=== PATIENT | male | born 2005 | race African-American/Black ===

== ENCOUNTER 2023-09-30 23:33 | Emergency (ER) | payer SELFPAY ==
--- NOTE | 2023-09-30 23:50 | ER ---
Nurse's Notes [facility] Name: Caesar Arredondo Age: 17 yrs Sex: Male : 2005 Arrival Date: 09/30/2023 Time: 23:33 Bed IW1 Private MD: Diagnosis: Vomiting;Abdominal pain, unspecified Presentation: 09/29 23:46 Chief complaint: Patient states: I just need a work note to return to work. Coronavirus bm8 screen: At this time, the client does not indicate any symptoms associated with coronavirus-19. Ebola Screen: Patient negative for fever greater than or equal to 101.5 degrees Fahrenheit, and additional compatible Ebola Virus Disease symptoms Patient denies exposure to infectious person. Patient denies travel to an Ebola-affected area in the 21 days before illness onset. No symptoms or risks identified at this time. Initial Sepsis Screen: Does the patient meet any 2 criteria? No. Patient's initial sepsis screen is negative. Does the patient have a suspected source of infection? No. Patient's initial sepsis screen is negative. Risk Assessment: Do you want to hurt yourself or someone else? Patient reports no desire to harm self or others. Onset of symptoms is unknown. 23:46 Method Of Arrival: Ambulatory bm8 23:46 Acuity: BENITO 5 bm8 Triage Assessment: 23:47 General: Appears in no apparent distress. comfortable, Behavior is calm, cooperative. bm8 Pain: Denies pain. GI: No deficits noted. No signs and/or symptoms were reported involving the gastrointestinal system. pt stated " I am only here for a work note to return to work. Historical: - Allergies: 23:47 No Known Allergies; bm8 - Home Meds: 23:47 None [Active]; bm8 - PMHx: 23:47 ADD/ADHD; bm8 - PSHx: 23:47 None; bm8 - Immunization history:: Adult Immunizations up to date. - Infectious Disease History:: Denies. - Social history:: Smoking status: Patient reports the use of cigarette tobacco products. - Family history:: not pertinent. - Hospitalizations: : No recent hospitalization is reported. Screenin:48 [facility] ED Fall Risk Assessment (Adult) History of falling in the last 3 months, bm8 including since admission No falls in past 3 months (0 pts) Confusion or Disorientation No (0 pts) Intoxicated or Sedated No (0 pts) Impaired Gait No (0 pts) Mobility Assist Device Used No (0 pt) Altered Elimination No (0 pt) Score/Fall Risk Level 0 - 2 = Low Risk Oriented to surroundings, Maintained a safe environment, Educated pt \\T\\ family on fall prevention, incl call for assistance when getting out of bed. Abuse screen: Denies threats or abuse. Denies injuries from another. Nutritional screening: No deficits noted. Tuberculosis screening: No symptoms or risk factors identified. Assessment: 23:48 Reassessment: see triage note. bm8 23:49 GI: Bowel sounds present X 4 quads. Abd is soft and non tender X 4 quads. bm8 Vital Signs: 23:46 BP 133 / 83; Pulse 74; Resp 17; Temp 98.6; Pulse Ox 99% ; Weight 70.31 kg; Height 5 ft. bm8 6 in. ; Pain 0/10; 23:46 Body Mass Index 25.02 (70.31 kg, 167.64 cm) - Percentile 71.9 % bm8 23:46 Pain Scale: Adult bm8 [place] Coma Score: 23:48 Eye Response: spontaneous(4). Motor Response: obeys commands(6). Verbal Response: bm8 oriented(5). Total: 15. ED Course: 23:39 Patient arrived in ED. ra3 23:40 Tim Aguirre MD is Attending Physician. rn 23:46 Seb Dyer RN is Primary Nurse. bm8 23:47 Triage completed. bm8 23:47 Arm band placed on right wrist. bm8 23:48 Patient has correct armband on for positive identification. Provided Education on: post bm8 er care. 23:48 No provider procedures requiring assistance completed. Patient did not have IV access bm8 during this emergency room visit. Administered Medications: No medications were administered Medication: 23:48 VIS not applicable for this client. bm8 Outcome: 23:48 Discharged to home ambulatory, bm8 23:48 Condition: stable 23:48 Discharge instructions given to patient, Instructed on discharge instructions, follow up and referral plans. Demonstrated understanding of instructions, follow-up care, 23:49 Discharge ordered by . rn 23:50 Patient left the ED. bm8 Signatures: Tim Aguirre MD MD rn Alva, Ruby ra3 Seb Dyer, RN RN bm8
--- NOTE | 2023-09-30 23:50 | EDPHYS ---
Physician Documentation [facility] Name: Caesar Arredondo Age: 17 yrs Sex: Male : 2005 Arrival Date: 09/30/2023 Time: 23:33 Bed IW1 Private MD: ED Physician Tim Aguirre HPI: 09/29 23:47 This 17 yrs old Black Male presents to ER via Ambulatory with complaints of Abdominal rn Pain, Nausea/Vomiting. 23:47 The patient presents to the emergency department with nausea, vomiting. Onset: The rn symptoms/episode began/occurred yesterday. Possible causes: unknown, sick contacts, by co-worker(s). Severity of symptoms: At their worst the symptoms were mild in the emergency department the symptoms have resolved. The patient has not experienced similar symptoms in the past. Patient reports was sick for the last 2 days with vomiting. Feels like picked up a bug from coworkers. Now feels completely back to normal without abdominal pain or vomiting. No diarrhea. No fever. Patient states just needs work note to return to work. Works at [employer] would not allow him to return without note. Historical: - Allergies: 23:47 No Known Allergies; bm8 - Home Meds: 23:47 None [Active]; bm8 - PMHx: 23:47 ADD/ADHD; bm8 - PSHx: 23:47 None; bm8 - Immunization history:: Adult Immunizations up to date. - Infectious Disease History:: Denies. - Social history:: Smoking status: Patient reports the use of cigarette tobacco products. - Family history:: not pertinent. - Hospitalizations: : No recent hospitalization is reported. ROS: 23:47 Constitutional: Negative for fever, chills, and weight loss, Cardiovascular: Negative rn for chest pain, palpitations, and edema, Respiratory: Negative for shortness of breath, cough, wheezing, and pleuritic chest pain, Abdomen/GI: Negative for abdominal pain, nausea, vomiting, diarrhea, and constipation, MS/Extremity: Negative for injury and deformity, Skin: Negative for injury, rash, and discoloration, Neuro: Negative for headache, weakness, numbness, tingling, and seizure, Exam: 23:47 Constitutional: This is a well developed, well nourished patient who is awake, alert, rn and in no acute distress. Patient using his phone entire conversation, does not appear acutely ill. Cardiovascular: Regular rate and rhythm. No pulse deficits. Abdomen/GI: Soft, nontender, nondistended Neuro: Awake and alert, GCS 15 Vital Signs: 23:46 BP 133 / 83; Pulse 74; Resp 17; Temp 98.6; Pulse Ox 99% ; Weight 70.31 kg; Height 5 ft. bm8 6 in. ; Pain 0/10; 23:46 Body Mass Index 25.02 (70.31 kg, 167.64 cm) - Percentile 71.9 % bm8 23:46 Pain Scale: Adult bm8 [place] Coma Score: 23:48 Eye Response: spontaneous(4). Motor Response: obeys commands(6). Verbal Response: bm8 oriented(5). Total: 15. MDM: 23:40 Patient medically screened. rn 23:47 Differential diagnosis: viral gastroenteritis, gastroenteritis. Data reviewed: vital rn signs, nurses notes, and as a result, I will discharge patient. Counseling: I had a detailed discussion with the patient and/or guardian regarding the historical points, exam findings, and any diagnostic results supporting the discharge/admit diagnosis, the need for outpatient follow up, to return to the emergency department if symptoms worsen or persist or if there are any questions or concerns that arise at home. Special discussion: I discussed with the patient/guardian in detail that at this point there is no indication for admission to the hospital. It is understood, however, that if the symptoms persist or worsen the patient needs to return immediately for re-evaluation. ED course: Patient declines any workup, states just needs work note. States completely back to normal without symptoms.. Administered Medications: No medications were administered Disposition Summary: 09/30/23 23:49 Discharge Ordered Notes: Location: Home rn Problem: new rn Symptoms: are resolved rn Condition: Stable rn Diagnosis - Vomiting rn - Abdominal pain, unspecified rn Followup: rn - With: Private Physician - When: As needed - Reason: Recheck today's complaints, Re-evaluation by your physician Discharge Instructions: - Discharge Summary Sheet rv1 Forms: - Medication Reconciliation Form rn - Antibiotic external auditor - Prescription Opioid Use rn - Patient Portal Instructions rn - Leadership Thank You Letter rn - Work release form rv1 Signatures: Tim Aguirre MD MD rn McDonald, Brad, RN RN bm8
[2023-10-01 00:33] VITALS: BP 133/83; TEMP 98.6; O2SAT 99
== END 2023-09-30 23:50 | disposition home or self-care (01) ==
LOC: ER 23:33
DX: Z02.79 Encounter for issue of other medical certificate (principal)
CPT/HCPCS: 99282

== ENCOUNTER 2023-11-18 03:22 | Emergency (ER) | payer OTHER, SELFPAY ==
--- NOTE | 2023-11-18 04:27 | ER ---
Nurse's Notes [facility] Name: Caesar Arredondo Age: 18 yrs Sex: Male : 2005 Arrival Date: 11/18/2023 Time: 03:22 Bed 17 Private MD: Diagnosis: Nausea;Sleep disorder, unspecified Presentation: 11/17 03:52 Chief complaint: Patient states: stomach "ill feel" and woke up gasping for air. vc1 Coronavirus screen: Client denies travel out of the [place] in the last 14 days. At this time, the client does not indicate any symptoms associated with coronavirus-19. Ebola Screen: Patient negative for fever greater than or equal to 101.5 degrees Fahrenheit, and additional compatible Ebola Virus Disease symptoms Patient denies exposure to infectious person. Patient denies travel to an Ebola-affected area in the 21 days before illness onset. No symptoms or risks identified at this time. Initial Sepsis Screen: Does the patient meet any 2 criteria? No. Patient's initial sepsis screen is negative. Does the patient have a suspected source of infection? No. Patient's initial sepsis screen is negative. Risk Assessment: Do you want to hurt yourself or someone else? Patient reports no desire to harm self or others. Onset of symptoms was November 18, 2023. 03:52 Method Of Arrival: Ambulatory vc1 03:52 Acuity: BENITO 4 vc1 Historical: - Allergies: 03:53 No Known Allergies; vc1 - Home Meds: 03:53 None [Active]; vc1 - PMHx: 03:53 ADD/ADHD; vc1 - PSHx: 03:53 None; vc1 - Immunization history:: Client reports receiving the 2nd dose of the Covid vaccine, Flu vaccine is not up to date. - Infectious Disease History:: Denies. - Social history:: Smoking status: Reported history of juuling and/or vaping. Screenin:56 [facility] ED Fall Risk Assessment (Adult) History of falling in the last 3 months, vc1 including since admission No falls in past 3 months (0 pts) Confusion or Disorientation No (0 pts) Intoxicated or Sedated No (0 pts) Impaired Gait No (0 pts) Mobility Assist Device Used No (0 pt) Altered Elimination No (0 pt) Score/Fall Risk Level 0 - 2 = Low Risk Oriented to surroundings, Maintained a safe environment, Educated pt \\T\\ family on fall prevention, incl call for assistance when getting out of bed. Abuse screen: Denies threats or abuse. Nutritional screening: No deficits noted. Tuberculosis screening: No symptoms or risk factors identified. Assessment: 04:15 General: Appears in no apparent distress. comfortable, Behavior is calm, cooperative, jw7 appropriate for age. Pain: Complains of pain in abdomen Pain does not radiate. Pain currently is 2 out of 10 on a pain scale. Quality of pain is described as crampy, Pain began suddenly, Is continuous. Neuro: Level of Consciousness is awake, alert, obeys commands, Oriented to person, place, time, situation, Appropriate for age. Cardiovascular: Heart tones S1 S2 present Capillary refill < 3 seconds Clubbing of nail beds is absent JVD is absent Patient's skin is warm and dry. Respiratory: Airway is patent Trachea midline Respiratory effort is even, unlabored, Respiratory pattern is regular, symmetrical. GI: Abdomen is flat, non-distended, Bowel sounds present X 4 quads. Abd is soft and non tender X 4 quads. : No deficits noted. No signs and/or symptoms were reported regarding the genitourinary system. EENT: No deficits noted. No signs and/or symptoms were reported regarding the EENT system. Derm: Skin is intact, is healthy with good turgor, Skin is dry, Skin is normal, Skin temperature is warm. Musculoskeletal: Circulation, motion, and sensation intact. Range of motion: intact in all extremities. Vital Signs: 03:52 Weight 66.68 kg; Height 5 ft. 6 in. ; Pain 0/10; vc1 03:54 BP 138 / 81; Pulse 77; Resp 14; Temp 97.7; Pulse Ox 98% ; vc1 03:52 Body Mass Index 23.73 (66.68 kg, 167.64 cm) vc1 03:52 Pain Scale: Adult vc1 ED Course: 03:24 Patient arrived in ED. ec2 03:24 Tyson Cordova MD is Attending Physician. ec2 03:53 Triage completed. vc1 03:53 Arm band placed on right wrist. vc1 04:15 Patient has correct armband on for positive identification. Bed in low position. Call jw7 light in reach. Provided Education on: Use of Call Light. 04:26 Joyce Stone, RN is Primary Nurse. jw7 04:28 No provider procedures requiring assistance completed. Patient did not have IV access jw7 during this emergency room visit. Administered Medications: 04:26 CANCELLED (Physician Discretion): ondansetron 4 mg IVP once; over 2 minutes ec2 04:26 CANCELLED (Physician Discretion): ns 0.9% 1000 ml IV at 1 bolus Per protocol; 1000 mL ec2 bolus Medication: 04:28 VIS not applicable for this client. jw7 Outcome: 04:27 Discharge ordered by . ec2 04:35 Discharged to home ambulatory, jw7 04:35 Condition: stable 04:35 Discharge instructions given to patient, Instructed on discharge instructions, follow up and referral plans. Demonstrated understanding of instructions, follow-up care, 04:35 Patient left the ED. jw7 Signatures: Carmen De La Garza RN RN vc1 Joyce Stone, RN RN jw7 Tyson Cordova MD MD ec2
--- NOTE | 2023-11-18 04:27 | EDPHYS ---
Physician Documentation [facility] Name: Caesar Arredondo Age: 18 yrs Sex: Male : 2005 Arrival Date: 11/18/2023 Time: 03:22 Bed 17 Private MD: ED Physician HPI: 11/17 04:27 This 18 yrs old Black Male presents to ER via Ambulatory with complaints of Abdominal ec2 Pain, BREATHING ISSUE WHILE SLEEPING. 04:27 Patient arrives today for evaluation of nausea as well as a breathing issue while ec2 sleeping. Patient reportedly felt nauseous and has since resolved. Also reportedly had a bout where he woke up suddenly gasping for air and was fairly anxious. States that this is the only time this has happened before. Patient reports she is symptom-free at this time and does not want further testing.. Historical: - Allergies: 03:53 No Known Allergies; vc1 - Home Meds: 03:53 None [Active]; vc1 - PMHx: 03:53 ADD/ADHD; vc1 - PSHx: 03:53 None; vc1 - Immunization history:: Client reports receiving the 2nd dose of the Covid vaccine, Flu vaccine is not up to date. - Infectious Disease History:: Denies. - Social history:: Smoking status: Reported history of juuling and/or vaping. ROS: 04:27 Constitutional: as per hpi ec2 Exam: 04:27 Constitutional: GEN: NAD Head: atraumatic Eyes: EOMI Ears: External ears are ec2 normal. CV: regular rate LUNGS: no respiratory distress ABD: non-distended, soft, nontender, no guarding, nonrigid SKIN: no evidence of rashes MSK: no evidence of trauma NEURO: moves all extremities equally Vital Signs: 03:52 Weight 66.68 kg; Height 5 ft. 6 in. ; Pain 0/10; vc1 03:54 BP 138 / 81; Pulse 77; Resp 14; Temp 97.7; Pulse Ox 98% ; vc1 03:52 Body Mass Index 23.73 (66.68 kg, 167.64 cm) vc1 03:52 Pain Scale: Adult vc1 MDM: 04:06 Patient medically screened. ec2 04:27 Data reviewed: vital signs. ED course: Patient arrives today for evaluation of ec2 breathing issue while sleeping as well as abdominal discomfort that is since resolved. Examination remarkable for hemodynamically stable individuals otherwise in no acute distress with a reassuring examination. I discussed obtaining lab work with the patient however the patient declines that he did not want additional lab test and felt back to baseline and wanted to be discharged home. I will discharge him and instruct him to return to the ED if symptoms return.. Administered Medications: 04:26 CANCELLED (Physician Discretion): ondansetron 4 mg IVP once; over 2 minutes ec2 04:26 CANCELLED (Physician Discretion): ns 0.9% 1000 ml IV at 1 bolus Per protocol; 1000 mL ec2 bolus Disposition Summary: 11/18/23 04:27 Discharge Ordered Notes: Location: Home ec2 Condition: Stable ec2 Diagnosis - Nausea ec2 - Sleep disorder, unspecified ec2 Followup: ec2 - With: Private Physician - When: - Reason: Re-evaluation by your physician Discharge Instructions: - Discharge Summary Sheet ec2 Forms: - Work release form ec2 - Medication Reconciliation Form ec2 - Antibiotic Education ec2 - Prescription Opioid Use ec2 - Patient Portal Instructions ec2 - Leadership Thank You Letter ec2 Signatures: Dispatcher [employer] EDMS Carmen De La Garza RN RN vc1 Tyson Cordova MD MD ec2 Corrections: (The following items were deleted from the chart) 04:26 04:06 Ondansetron IVP 4 mg IVP once; over 2 minutes ordered. ec2 ec2 04:26 04:06 NS 0.9% IV 1000 ml IV at 1 bolus Per protocol; 1000 mL bolus ordered. ec2 ec2 04:26 04:06 IV Saline Lock ordered. ec2 ec2
[2023-11-18 05:30] VITALS: BP 138/81; TEMP 97.7; O2SAT 98
== END 2023-11-18 04:35 | disposition home or self-care (01) ==
LOC: ER 03:22
DX: R11.0 Nausea (principal); G47.9 Sleep disorder, unspecified
CPT/HCPCS: 99282

== ENCOUNTER 2023-12-31 02:52 | Emergency (ER) | payer OTHER, SELFPAY ==
--- NOTE | 2023-12-31 04:35 | ER ---
Nurse's Notes [facility] Name: Caesar Arredondo Age: 18 yrs Sex: Male : 2005 Arrival Date: 12/31/2023 Time: 02:52 Bed 7 Private MD: Diagnosis: Abdominal pain, unspecified Presentation: 12/30 03:10 Chief complaint: Patient states: Left side/rib pain that is intermittent and comes on jw7 sharp and slowly goes away. Has been going on for over a year and happens roughly 3 times per day. 03:10 Coronavirus screen: At this time, the client does not indicate any symptoms associated jw7 with coronavirus-19. Ebola Screen: No symptoms or risks identified at this time. Initial Sepsis Screen: Does the patient meet any 2 criteria? No. Patient's initial sepsis screen is negative. Does the patient have a suspected source of infection? No. Patient's initial sepsis screen is negative. Risk Assessment: Do you want to hurt yourself or someone else? Patient reports no desire to harm self or others. Onset of symptoms was 2022. 03:10 Method Of Arrival: Ambulatory jw7 03:10 Acuity: BENITO 4 jw7 Triage Assessment: 03:10 General: Appears in no apparent distress. comfortable, Behavior is calm, cooperative, jw7 appropriate for age. Pain: Denies pain. EENT: No deficits noted. No signs and/or symptoms were reported regarding the EENT system. Neuro: Level of Consciousness is awake, alert, obeys commands, Oriented to person, place, time, situation, Appropriate for age. Cardiovascular: Heart tones S1 S2 present Capillary refill < 3 seconds Clubbing of nail beds is absent JVD is absent Patient's skin is warm and dry. Respiratory: Airway is patent Trachea midline Respiratory effort is even, unlabored, Respiratory pattern is regular, symmetrical, Breath sounds are clear bilaterally. GI: Abdomen is flat, non-distended, Bowel sounds present X 4 quads. Abd is soft and non tender X 4 quads. : No deficits noted. No signs and/or symptoms were reported regarding the genitourinary system. Derm: Skin is intact, is healthy with good turgor, Skin is dry, Skin is normal, Skin temperature is warm. Musculoskeletal: Circulation, motion, and sensation intact. Range of motion: intact in all extremities. Historical: - Allergies: 03:10 No Known Allergies; jw7 - Home Meds: 03:10 None [Active]; jw7 - PMHx: 03:10 ADD/ADHD; jw7 - PSHx: 03:10 None; jw7 - Immunization history:: Adult Immunizations up to date. - Infectious Disease History:: Denies. - Social history:: Smoking status: Reported history of juuling and/or vaping. Patient uses alcohol, but reports only rare drinking. Patient/guardian denies using street drugs, IV drugs. - Family history:: not pertinent. Screenin:10 [facility] ED Fall Risk Assessment (Adult) History of falling in the last 3 months, jw7 including since admission No falls in past 3 months (0 pts) Confusion or Disorientation No (0 pts) Intoxicated or Sedated No (0 pts) Impaired Gait No (0 pts) Mobility Assist Device Used No (0 pt) Altered Elimination No (0 pt) Score/Fall Risk Level 0 - 2 = Low Risk Oriented to surroundings, Maintained a safe environment, Educated pt \\T\\ family on fall prevention, incl call for assistance when getting out of bed. Abuse screen: Denies threats or abuse. Denies injuries from another. Nutritional screening: No deficits noted. Tuberculosis screening: No symptoms or risk factors identified. Assessment: 03:10 General: see triage assessment. jw7 03:30 General: Provider requested to wait on labs . jw7 04:20 General: Pt refused IV and lab work, stated "I'll come back later if I need to" . jw7 04:33 Reassessment: Patient appears in no apparent distress at this time. No changes from jw7 previously documented assessment. Patient and/or family updated on plan of care and expected duration. Pain level reassessed. Patient is alert, oriented x 3, equal unlabored respirations, skin warm/dry/pink. Patient denies pain at this time. Vital Signs: 03:10 BP 131 / 79 LA Sitting (auto/reg); Pulse 78 MON; Resp 16 S; Temp 98.6(O); Pulse Ox 96% oh1 on R/A; Weight 65.77 kg (M); Height 5 ft. 6 in. (R); Pain 0/10; 04:00 BP 121 / 88; Pulse 75; Resp 16 S; Pulse Ox 100% on R/A; jw7 03:10 Body Mass Index 23.40 (65.77 kg, 167.64 cm) oh1 03:10 Pain Scale: Adult oh1 ED Course: 03:01 Patient arrived in ED. gm2 03:10 Arm band placed on. jw7 03:10 Patient has correct armband on for positive identification. Bed in low position. Call jw7 light in reach. Provided Education on: use of call light. 03:13 Phil Osman MD is Attending Physician. sp4 03:28 Triage completed. jw7 04:35 Avila Guzman MD is Referral Physician. sp4 04:46 No provider procedures requiring assistance completed. Patient did not have IV access jw7 during this emergency room visit. Administered Medications: No medications were administered Medication: 04:46 VIS not applicable for this client. jw7 Outcome: 04:35 Discharge ordered by . sp4 04:46 Discharged to home ambulatory, jw7 04:46 Condition: stable 04:46 Discharge instructions given to patient, Instructed on discharge instructions, follow up and referral plans. Demonstrated understanding of instructions, follow-up care, 04:47 Patient left the ED. jw7 Signatures: Joyce Stone RN RN jw7 Phil Osman MD MD sp4 April Quinones gm2 Terri Herr oh1
--- NOTE | 2023-12-31 04:36 | EDPHYS ---
Physician Documentation [facility] Name: Caesar Arredondo Age: 18 yrs Sex: Male : 2005 Arrival Date: 12/31/2023 Time: 02:52 Bed 7 Private MD: ED Physician Phil Osman HPI: 12/30 03:47 This 18 yrs old Black Male presents to ER via Ambulatory with complaints of Abdominal sp4 Pain. 04:37 Presents with left upper quadrant abdominal pain on and off for 1 year.. sp4 Historical: - Allergies: 03:10 No Known Allergies; jw7 - Home Meds: 03:10 None [Active]; jw7 - PMHx: 03:10 ADD/ADHD; jw7 - PSHx: 03:10 None; jw7 - Immunization history:: Adult Immunizations up to date. - Infectious Disease History:: Denies. - Social history:: Smoking status: Reported history of juuling and/or vaping. Patient uses alcohol, but reports only rare drinking. Patient/guardian denies using street drugs, IV drugs. - Family history:: not pertinent. ROS: 04:37 Constitutional: Negative for fever, chills, and weight loss, left upper quadrant sp4 abdominal pain 04:37 All other systems are negative, Exam: 04:37 Constitutional: This is a well developed, well nourished patient who is awake, alert, sp4 and in no acute distress. Head/Face: Normocephalic, atraumatic. Eyes: Pupils equal round and reactive to light, extra-ocular motions intact. Lids and lashes normal. Conjunctiva and sclera are not injected. Cornea within normal limits. Periorbital areas with no swelling, redness, or edema. ENT: Nares patent. No nasal discharge, no septal abnormalities noted. Tympanic membranes are normal and external auditory canals are clear. Oropharynx with no redness, swelling, or masses, exudates, or evidence of obstruction, uvula midline. Mucous membranes moist. Neck: Trachea midline, no thyromegaly or masses palpated, and no cervical lymphadenopathy. Supple, full range of motion without nuchal rigidity, or vertebral point tenderness. Chest/axilla: Normal chest wall appearance and motion. Nontender with no deformity. No lesions are appreciated. Cardiovascular: Regular rate and rhythm with a normal S1 and S2. No gallops, murmurs, or rubs. Normal PMI, no JVD. No pulse deficits. Respiratory: Lungs have equal breath sounds bilaterally, clear to auscultation and percussion. No rales, rhonchi or wheezes noted. No increased work of breathing, no retractions or nasal flaring. Abdomen/GI: Soft, with normal bowel sounds. No distension or tympany. No guarding or rebound. No evidence of tenderness throughout. Back: No spinal tenderness. No costovertebral tenderness. Skin: Warm, dry with normal turgor. Normal color with no rashes, no lesions, and no evidence of cellulitis. MS/ Extremity: Pulses equal, no cyanosis. Neurovascular intact. Full, normal range of motion. Neuro: Awake and alert, GCS 15, oriented to person, place, time, and situation. Cranial nerves II-XII grossly intact. Motor strength 5/5 in all extremities. Sensory grossly intact. Psych: Awake, alert, with orientation to person, place and time. Behavior, mood, and affect are within normal limits Vital Signs: 03:10 BP 131 / 79 LA Sitting (auto/reg); Pulse 78 MON; Resp 16 S; Temp 98.6(O); Pulse Ox 96% oh1 on R/A; Weight 65.77 kg (M); Height 5 ft. 6 in. (R); Pain 0/10; 04:00 BP 121 / 88; Pulse 75; Resp 16 S; Pulse Ox 100% on R/A; jw7 03:10 Body Mass Index 23.40 (65.77 kg, 167.64 cm) oh1 03:10 Pain Scale: Adult oh1 MDM: 03:45 Patient medically screened. sp4 04:37 Differential diagnosis: bowel obstruction, Cholelithiasis, diverticulitis, Hepatitis. sp4 Data reviewed: vital signs, nurses notes, old medical records. ED course: At this time declined labs and a CAT scan, states he will come back when he is more time.. Able for discharge with informed discharge. Administered Medications: No medications were administered Disposition Summary: 12/31/23 04:35 Discharge Ordered Notes: Location: Home sp4 Problem: new sp4 Symptoms: have improved sp4 Condition: Stable sp4 Diagnosis - Abdominal pain, unspecified sp4 Followup: sp4 - With: Megan, Avila, MD - When: 7 - 10 days - Reason: Recheck today's complaints Discharge Instructions: - Discharge Summary Sheet sp4 - Abdominal Pain, Adult sp4 Forms: - Work release form sp4 - Patient Portal Instructions sp4 Signatures: Dispatcher [employer] Joyce Cruz RN RN jw7 Phil Osman MD MD sp4 Corrections: (The following items were deleted from the chart) 03:46 03:46 Urinalysis W/Microscopic+U.LAB.BRZ ordered. EDMS EDMS 03:46 03:46 C-REACTIVE PROTEIN+C.LAB.BRZ ordered. EDMS EDMS 04:46 03:14 IV Saline Lock ordered. sp4 jw7 04:47 03:14 Labs collected and sent ordered. sp4 jw7
[2023-12-31 08:24] VITALS: TEMP 98.6
[2023-12-31 08:25] VITALS: BP 121/88; O2SAT 100
== END 2023-12-31 04:47 | disposition home or self-care (01) ==
LOC: ER 02:52
DX: R10.12 Left upper quadrant pain (principal)
CPT/HCPCS: 99282

== ENCOUNTER 2023-12-31 23:55 | Emergency (ER) | payer SELFPAY ==
--- NOTE | 2024-01-01 12:37 | RAD REPORT ---
EXAM DESCRIPTION: CT Abdomen and Pelvis With Intravenous Contrast CLINICAL HISTORY: ABD PAIN. TECHNIQUE: Axial computed tomography images of the abdomen and pelvis with intravenous contrast. S agittal and coronal reformatted images were created and reviewed. This CT exam was performed using one or more of the following dose reduction techniques: automated exposure control, adjustment of t he mA and/or kV according to patient size, and/or use of iterative reconstruction technique. COMPARISON: No relevant prior studies available. FINDINGS: Lung bases: Unremarkable. No mass. No consolidation. ABDOMEN: Liver: Unremarkable. No mass. Gallbladder and bile ducts: Unremarkable. No calcified stones. No ductal dilation. Pancreas: Unremarkable. No mass. No ductal dilation. Spleen: Unremarkable. No splenomegaly. Adrenals: Unremarkable. No mass. Kidneys and ureters: Unremarkable. No solid mass. No hydronephrosis. Stomach and bowel: Moderate stool in the proximal to mid large bowel. No obstruction. No appreciabl e mucosal thickening. PELVIS: Appendix: Normal caliber appendix. No findings to suggest acute appendicitis. Bladder: Unremarkable. No mass. Reproductive: Unremarkable as visualized. ABDOMEN and PELVIS: Intraperitoneal space: Unremarkable. No free air. No significant fluid collection. Bones/joints: No acute fracture. No dislocation. Soft tissues: Unremarkable. Vasculature: Unremarkable. No abdominal aortic aneurysm. Lymph nodes: Unremarkable. No enlarged lymph nodes. IMPRESSION: 1. No acute inflammatory process identified within the abdomen and pelvis. 2. Other findings as above. Electronically signed by: Saeid Ruiz MD 01/01/2024 02:36 AM CDT Due to temporary technical issues with the PACS/Fluency reporting system, reports are being signed by the in house radiologists without review as a courtesy to insure prompt reporting. The interpreting radiologist is fully responsible for the content of the report.
--- NOTE | 2024-01-01 17:00 | ER ---
Nurse's Notes [facility] Name: Caesar Arredondo Age: 18 yrs Sex: Male : 2005 Arrival Date: 12/31/2023 Time: 23:55 Bed 10 Private MD: Diagnosis: Abdominal pain, unspecified Presentation: 12/31 00:07 Chief complaint: Patient states: WAS SEEN IN THE ER YESTERDAY FOR LEFT SIDED PAIN. jj7 STATES HE WAS SUPPOSE TO GET A CT BUT LEFT BECAUSE HE DIDN'T HAVE TIME. NOW HERE TO GET A CT. CURRENTLY NOT HAVING ANY PAIN. Coronavirus screen: At this time, the client does not indicate any symptoms associated with coronavirus-19. Ebola Screen: No symptoms or risks identified at this time. Initial Sepsis Screen: Does the patient meet any 2 criteria? No. Patient's initial sepsis screen is negative. Does the patient have a suspected source of infection? No. Patient's initial sepsis screen is negative. Risk Assessment: Do you want to hurt yourself or someone else? Patient reports no desire to harm self or others. 00:07 Method Of Arrival: Ambulatory [facility] 00:07 Acuity: BENITO 5 jj7 00:07 Onset of symptoms was December 31, 2023. j7 Triage Assessment: 00:12 General: Appears in no apparent distress. comfortable, Behavior is calm, cooperative, jj7 appropriate for age. Pain: Denies pain. Historical: - Allergies: 00:12 No Known Allergies; jj7 - PMHx: 00:12 ADD/ADHD; jj7 - PSHx: 00:12 None; jj7 - Immunization history:: Adult Immunizations up to date. - Infectious Disease History:: Denies. - Social history:: Smoking status: Reported history of juuling and/or vaping. Patient/guardian denies using alcohol, street drugs. - Family history:: not pertinent. Screenin:13 [facility] ED Fall Risk Assessment (Adult) History of falling in the last 3 months, jj7 including since admission No falls in past 3 months (0 pts) Confusion or Disorientation No (0 pts) Intoxicated or Sedated No (0 pts) Impaired Gait No (0 pts) Mobility Assist Device Used No (0 pt) Altered Elimination No (0 pt) Score/Fall Risk Level 0 - 2 = Low Risk Oriented to surroundings, Maintained a safe environment, Educated pt \T\ family on fall prevention, incl call for assistance when getting out of bed, Assessed \T\ reinforced patient's understanding of fall precautions. Abuse screen: Denies threats or abuse. Nutritional screening: No deficits noted. Tuberculosis screening: No symptoms or risk factors identified. Assessment: 00:13 Reassessment: SEE TRIAGE ASSESMENT. jj7 Vital Signs: 00:07 BP 134 / 82; Pulse 72; Resp 19; Temp 98.7; Pulse Ox 99% ; Weight 65.77 kg; Height 5 ft. jj7 6 in. ; Pain 0/10; 01:00 BP 127 / 75; Pulse 69; Resp 17; Pulse Ox 98% ; jj7 02:00 BP 129 / 81; Pulse 76; Resp 17; Pulse Ox 98% ; jj7 02:55 BP 124 / 76; Pulse 75; Resp 17; Temp 98.3; Pulse Ox 97% ; Pain 0/10; jj7 00:07 Body Mass Index 23.40 (65.77 kg, 167.64 cm) jj7 00:07 Pain Scale: Adult jj7 02:55 Pain Scale: Adult jj7 ED Course: 12/30 23:56 Patient arrived in ED. jj6 23:56 Agusto Lopez MD is Attending Physician. rt 08 00:12 Triage completed. jj7 00:12 Arm band placed on right wrist. jj7 00:13 Patient has correct armband on for positive identification. jj7 00:14 Provided Education on: use of call ibarra. jj7 00:50 Inserted saline lock: 22 gauge in right antecubital area, using aseptic technique. ty Flushed with 10 mL NS. 02:57 No provider procedures requiring assistance completed. IV discontinued, intact, jj7 bleeding controlled, No redness/swelling at site. Pressure dressing applied. 08:51 CT Abd/Pelvis - IV Contrast Only In Process Unspecified. EDMS Administered Medications: No medications were administered Medication: 00:13 VIS not applicable for this client. jj7 Outcome: 02:42 Discharge ordered by . rt 02:57 Discharged to home ambulatory, jj7 02:57 Condition: good 02:57 Discharge instructions given to patient, Instructed on discharge instructions, Demonstrated understanding of instructions, 03:03 Patient left the ED. jj7 Signatures: Dispatcher [employer] EDGissell Benitez jj6 Shruthi Hicks RN RN jj7 Agusto Lopez MD MD rt Jose Vazquez
--- NOTE | 2024-01-01 17:01 | EDPHYS ---
Physician Documentation [facility] Name: Caesar Arredondo Age: 18 yrs Sex: Male : 2005 Arrival Date: 12/31/2023 Time: 23:55 Bed 10 Private MD: ED Physician Agusto Lopez HPI: 12/31 00:29 This 18 yrs old Black Male presents to ER via Ambulatory with complaints of LEFT SIDE rt PAIN. 00:29 Patient presents to the ED with a left upper quadrant pain that has been intermittent rt for quite some time. Patient was seen in the ED last night, CT scan was ordered but he left because he did not have time to wait. Is back for CT scan. Denies any pain currently. Symptoms are mild severity, no other aggravating or elevating factors.. Historical: - Allergies: 00:12 No Known Allergies; jj7 - PMHx: 00:12 ADD/ADHD; jj7 - PSHx: 00:12 None; jj7 - Immunization history:: Adult Immunizations up to date. - Infectious Disease History:: Denies. - Social history:: Smoking status: Reported history of juuling and/or vaping. Patient/guardian denies using alcohol, street drugs. - Family history:: not pertinent. ROS: 00:29 Constitutional: Negative for fever, chills, and weight loss, Cardiovascular: Negative rt for chest pain, palpitations, and edema, Respiratory: Negative for shortness of breath, cough, wheezing, and pleuritic chest pain, MS/Extremity: Negative for injury and deformity, Skin: Negative for injury, rash, and discoloration, Neuro: Negative for headache, weakness, numbness, tingling, and seizure, 00:29 Abdomen/GI: Positive for abdominal pain, Negative for nausea and vomiting, Exam: 00:29 Constitutional: This is a well developed, well nourished patient who is awake, alert, rt and in no acute distress. Head/Face: Normocephalic, atraumatic. Chest/axilla: Normal chest wall appearance and motion. Nontender with no deformity. No lesions are appreciated. Cardiovascular: Regular rate and rhythm with a normal S1 and S2. No gallops, murmurs, or rubs. Normal PMI, no JVD. No pulse deficits. Respiratory: Lungs have equal breath sounds bilaterally, clear to auscultation and percussion. No rales, rhonchi or wheezes noted. No increased work of breathing, no retractions or nasal flaring. Abdomen/GI: Soft, non-tender, with normal bowel sounds. No distension or tympany. No guarding or rebound. No evidence of tenderness throughout. Skin: Warm, dry with normal turgor. Normal color with no rashes, no lesions, and no evidence of cellulitis. MS/ Extremity: Pulses equal, no cyanosis. Neurovascular intact. Full, normal range of motion. Neuro: Awake and alert, GCS 15, oriented to person, place, time, and situation. Cranial nerves II-XII grossly intact. Motor strength 5/5 in all extremities. Sensory grossly intact. Cerebellar exam normal. Normal gait. Vital Signs: 00:07 BP 134 / 82; Pulse 72; Resp 19; Temp 98.7; Pulse Ox 99% ; Weight 65.77 kg; Height 5 ft. j7 6 in. ; Pain 0/10; 01:00 BP 127 / 75; Pulse 69; Resp 17; Pulse Ox 98% ; j7 02:00 BP 129 / 81; Pulse 76; Resp 17; Pulse Ox 98% ; j7 02:55 BP 124 / 76; Pulse 75; Resp 17; Temp 98.3; Pulse Ox 97% ; Pain 0/10; jj7 00:07 Body Mass Index 23.40 (65.77 kg, 167.64 cm) 7 00:07 Pain Scale: Adult jj7 02:55 Pain Scale: Adult jj7 MDM: 00:17 Patient medically screened. rt 02:43 Differential Diagnosis Gastritis, pancreatitis, bowel obstruction. Data reviewed: vital rt signs, nurses notes, radiologic studies. Test considered but Not performed: Labs: Stable vital signs, no complaints in the ED, labs not indicated. Counseling: I had a detailed discussion with the patient and/or guardian regarding the historical points, exam findings, and any diagnostic results supporting the discharge/admit diagnosis, radiology results, the need for outpatient follow up, to return to the emergency department if symptoms worsen or persist or if there are any questions or concerns that arise at home. 12/31 00:27 Order name: CT Abd/Pelvis - IV Contrast Only rt Administered Medications: No medications were administered Disposition Summary: 01/01/24 02:42 Discharge Ordered Notes: Location: Home rt Problem: an ongoing problem rt Symptoms: have improved rt Condition: Stable rt Diagnosis - Abdominal pain, unspecified rt Followup: rt - With: Private Physician - When: 2 - 3 days - Reason: Discharge Instructions: - Discharge Summary Sheet rt - Abdominal Pain, Adult rt Forms: - Work release form rt - Medication Reconciliation Form rt - Antibiotic Education rt - Prescription Opioid Use rt - Patient Portal Instructions rt - Leadership Thank You Letter rt Signatures: Dispatcher [employer] Shruthi Leahy RN RN jj7 Agusto Lopez MD MD rt
[2024-01-02 00:45] VITALS: BP 124/76; TEMP 98.3; O2SAT 97
== END 2024-01-01 03:03 | disposition home or self-care (01) ==
LOC: ER 23:55
DX: R10.12 Left upper quadrant pain (principal)
CPT/HCPCS: 74177; Q9967

== ENCOUNTER 2024-08-10 19:28 | Emergency (ER) | payer OTHER ==
[2024-08-10 20:47] LABS: Influenza A Ag Positive; Influenza B Ag Negative; SARS-CoV-2 Antigen Rapid Res Negative (Negative)
--- NOTE | 2024-08-10 20:57 | EDPHYS ---
Physician Documentation [facility] Name: Caesar Arredondo Age: 18 yrs Sex: Male : 2005 Arrival Date: 08/10/2024 Time: 19:28 Bed 14 Private MD: ED Physician Tyson Cordova HPI: 08/10 20:05 This 18 yrs old Black Male presents to ER via Ambulatory with complaints of Flu cp Symptoms. 20:05 The patient or guardian reports cough, that is intermittent, with productive sputum, cp flu symptoms, body aches, head ache, sore throat. 20:05 Onset: The symptoms/episode began/occurred 3 day(s) ago. Severity of symptoms: in the emergency department the symptoms are unchanged. Associated signs and symptoms: Pertinent negatives: chest pain, diarrhea, fever, vomiting. Historical: - Allergies: 19:45 No Known Allergies; cm10 - PMHx: 19:45 ADD/ADHD; cm10 - Immunization history:: Adult Immunizations up to date. - Infectious Disease History:: Denies. - Social history:: Smoking status: Reported history of juuling and/or vaping. ROS: 20:10 Constitutional: Positive for body aches, Negative for fever, poor PO intake, cp 20:10 Eyes: Negative for injury, pain, redness, and discharge, cp 20:10 ENT: Positive for sore throat, Negative for drainage from ear(s), ear pain, sinus pain, difficulty swallowing, difficulty handling secretions, 20:10 Cardiovascular: Negative for chest pain, 20:10 Respiratory: Positive for cough, Negative for shortness of breath, wheezing, 20:10 Abdomen/GI: Negative for abdominal pain, vomiting, diarrhea, constipation, 20:10 Skin: Negative for rash, 20:10 Neuro: Positive for headache, Negative for altered mental status, weakness, 20:10 All other systems are negative, Exam: 20:10 Head/Face: Normocephalic, atraumatic. cp 20:10 Constitutional: The patient appears in no acute distress, alert, awake, non-toxic, well developed, well nourished, 20:10 Eyes: Periorbital structures: appear normal, Conjunctiva: normal, no exudate, no injection, Sclera: no appreciated abnormality, Lids and lashes: appear normal, bilaterally, 20:10 ENT: External ear(s): are unremarkable, Nose: is normal, Mouth: Lips: moist, Oral mucosa: moist, Posterior pharynx: Airway: no evidence of obstruction, patent, Tonsils: with erythema, no enlargement, no exudate, erythema, that is mild, exudate, is not appreciated, 20:10 Neck: ROM/movement: Meningeal signs: are not present, nuchal rigidity, is not appreciated, Lymph nodes: no appreciated lymphadenopathy, 20:10 Chest/axilla: Inspection: normal, 20:10 Cardiovascular: Rate: normal, 20:10 Respiratory: the patient does not display signs of respiratory distress, Respirations: normal, no use of accessory muscles, no retractions, labored breathing, is not present, Breath sounds: decreased breath sounds, are not appreciated, stridor, is not appreciated, + upper airway congestion. wheezing: is not appreciated, 20:10 Abdomen/GI: Exam negative for discomfort, distension, guarding, Inspection: abdomen appears normal, 20:10 Back: pain, is absent, ROM is normal, 20:10 Skin: no rash present. Vital Signs: 19:44 BP 135 / 88; Pulse 95; Resp 15; Temp 99.6; Pulse Ox 98% ; Weight 68.04 kg; Height 5 ft. cm10 5 in. ; Pain 4/10; 20:59 BP 119 / 81; Pulse 88; Resp 18; Temp 98; Pulse Ox 98% on R/A; kj2 19:44 Body Mass Index 24.96 (68.04 kg, 165.1 cm) cm10 19:44 Pain Scale: Adult cm10 MDM: 19:51 Medical Screening Exam initiated 20:15 Differential Diagnosis: Bronchitis Influenza Sinusitis Pharyngitis Otitis Media Viral Syndrome Pneumonia. 20:55 Data reviewed: vital signs, nurses notes, lab test result(s), and as a result, I will cp discharge patient. 20:55 I considered the following discharge prescriptions or medication management in the emergency department Medications were administered in the Emergency Department. See MAR. Counseling: I had a detailed discussion with the patient and/or guardian regarding the historical points, exam findings, and any diagnostic results supporting the discharge/admit diagnosis, lab results, to return to the emergency department if symptoms worsen or persist or if there are any questions or concerns that arise at home. Response to treatment: the patient's symptoms have mildly improved after treatment, and as a result, I will discharge patient. 08/10 20:01 Order name: COVID-19 Ag + Flu A+B Ag; Complete Time: 20:51 cp 08/10 20:52 Interpretation: Reviewed. cp 08/10 20:01 Order name: Group A Streptococcus Rapid; Complete Time: 20:51 cp 08/10 20:50 Order name: Throat Culture EDMS Administered Medications: 21:01 Drug: Tessalon Perle PO 200 mg PO once Route: PO; kj2 21:01 Follow up: Response: Medication administered at discharge. kj2 Disposition Summary: 08/10/24 20:56 Discharge Ordered Notes: Location: Home cp Problem: new cp Symptoms: have improved cp Condition: Stable cp Diagnosis - Influenza due to identified novel influenza A virus with other respiratory cp manifestations Followup: cp - With: Private Physician - When: 2 - 3 days - Reason: Worsening of condition Discharge Instructions: - Discharge Summary Sheet cp - Influenza, Adult cp Forms: - Medication Reconciliation Form cp - Antibiotic Education cp - Prescription Opioid Use cp - Patient Portal Instructions cp - Leadership Thank You Letter cp Prescriptions: - Bromfed DM 2-30-10 mg/5 mL Oral syrup - administer 10 milliliter ORAL route every 6-8 hours as needed for cold cp symptoms; 240 milliliter; Refills: 0, Product Selection Permitted - Ibuprofen 800 mg Oral Tablet - take 1 tablet ORAL route every 8 hours As needed take with food; 30 tablet; cp Refills: 0, Product Selection Permitted Addendum: 08/12/2024 00:17 I was immediately available for consultation during this patient's visit. I did not e c2 personally see the patient or discuss the patient with the LI. . Signatures: Dispatcher [employer] EDMS Rajan White PA PA cp Martinez, Clarissa, RN RN cm10 Tyson Cordova MD MD ec2 Della Navarrete RN RN kj2
--- NOTE | 2024-08-10 20:57 | ER ---
Nurse's Notes [facility] Name: Caesar Arredondo Age: 18 yrs Sex: Male : 2005 Arrival Date: 08/10/2024 Time: 19:28 Bed 14 Private MD: Diagnosis: Influenza due to identified novel influenza A virus with other respiratory manifestations Presentation: 08/10 19:44 Chief complaint: Patient states: cough, headache, bodyaches onset 3 days ago. cm10 Coronavirus screen: Client denies travel out of the [place] in the last 14 days. Ebola Screen: Patient denies travel to an Ebola-affected area in the 21 days before illness onset. Initial Sepsis Screen: Does the patient meet any 2 criteria? HR > 90 bpm. Does the patient have a suspected source of infection? No. Patient's initial sepsis screen is negative. Risk Assessment: Do you want to hurt yourself or someone else? Patient reports no desire to harm self or others. Onset of symptoms was August 10, 2024. 19:44 Method Of Arrival: Ambulatory cm10 19:44 Acuity: BENITO 4 cm10 Triage Assessment: 19:46 General: Appears in no apparent distress. comfortable, Behavior is calm, cooperative. cm10 Neuro: No deficits noted. Level of Consciousness is awake, alert, obeys commands, Oriented to person, place, time, situation, Appropriate for age. Respiratory: No deficits noted. Airway is patent Respiratory effort is even, unlabored, Respiratory pattern is regular, symmetrical. Historical: - Allergies: 19:45 No Known Allergies; cm10 - PMHx: 19:45 ADD/ADHD; cm10 - Immunization history:: Adult Immunizations up to date. - Infectious Disease History:: Denies. - Social history:: Smoking status: Reported history of juuling and/or vaping. Screenin:20 [facility] [place] ED Fall Risk Assessment (Adult) History of falling in the last 3 months, kj2 including since admission No falls in past 3 months (0 pts) Confusion or Disorientation No (0 pts) Intoxicated or Sedated No (0 pts) Impaired Gait No (0 pts) Mobility Assist Device Used No (0 pt) Altered Elimination No (0 pt) Score/Fall Risk Level 0 - 2 = Low Risk Maintained a safe environment, Hourly rounding (assess needs \T\ fall precautionary measures) done. Abuse screen: Denies threats or abuse. Denies injuries from another. Nutritional screening: No deficits noted. Tuberculosis screening: No symptoms or risk factors identified. Assessment: 20:20 General: Appears in no apparent distress. Behavior is calm, cooperative. Pain: kj2 Complains of pain in generalized Pain currently is 4 out of 10 on a pain scale. Neuro: Level of Consciousness is awake, alert, obeys commands, Oriented to person, place, time, situation. Cardiovascular: Patient's skin is warm and dry. Respiratory: Airway is patent Respiratory effort is even, unlabored. GI: No signs and/or symptoms were reported involving the gastrointestinal system. : No signs and/or symptoms were reported regarding the genitourinary system. 20:59 Reassessment: Patient appears in no apparent distress at this time. Patient and/or kj2 family updated on plan of care and expected duration. Pain level reassessed. Patient is alert, oriented x 3, equal unlabored respirations, skin warm/dry/pink. Vital Signs: 19:44 BP 135 / 88; Pulse 95; Resp 15; Temp 99.6; Pulse Ox 98% ; Weight 68.04 kg; Height 5 ft. cm10 5 in. ; Pain 4/10; 20:59 BP 119 / 81; Pulse 88; Resp 18; Temp 98; Pulse Ox 98% on R/A; kj2 19:44 Body Mass Index 24.96 (68.04 kg, 165.1 cm) cm10 19:44 Pain Scale: Adult cm10 ED Course: 19:33 Patient arrived in ED. im 19:34 Rajan White PA is PHCP. cp 19:34 Tyson Cordova MD is Attending Physician. cp 19:45 Triage completed. cm10 19:45 Arm band placed on right wrist. Patient placed in an exam room, on a stretcher. cm10 20:16 Della Navarrete, MARIJA is Primary Nurse. kj2 20:20 Patient has correct armband on for positive identification. Provided Education on: call kj2 light. 20:25 Group A Streptococcus Rapid Sent. kj2 20:25 COVID-19 Ag + Flu A+B Ag Sent. kj2 21:00 No provider procedures requiring assistance completed. Patient did not have IV access kj2 during this emergency room visit. Administered Medications: 21:01 Drug: Tessalon Perle PO 200 mg PO once Route: PO; kj2 21:01 Follow up: Response: Medication administered at discharge. kj2 Medication: 21:00 VIS not applicable for this client. kj2 Outcome: 20:56 Discharge ordered by . estela 21:00 Discharged to home ambulatory, kj2 21:00 Condition: stable 21:00 Discharge instructions given to patient, Instructed on discharge instructions, follow up and referral plans. Demonstrated understanding of instructions, follow-up care, 21:38 Patient left the ED. kj2 Signatures: Rajan White PA PA cp Mendoza, Itzel im Martinez, Clarissa, RN RN cm10 Della Navarrete RN RN kj2
[2024-08-10] MEDS ORDERED: BENZONATATE 100 MG CAP PO ONE (20:58)
[2024-08-10 21:54] VITALS: O2SAT 98
[2024-08-10 21:55] VITALS: BP 119/81; TEMP 98
== END 2024-08-10 21:38 | disposition home or self-care (01) ==
LOC: ER 19:28
DX: J10.1 Influenza due to other identified influenza virus with other respiratory manifestations (principal); Z11.52 Encounter for screening for COVID-19
CPT/HCPCS: 36415; 87070; 87428; 99283

== ENCOUNTER 2024-09-07 11:45 | Emergency (ER) | payer OTHER ==
[2024-09-07] MEDS ORDERED: DOXYCYCLINE 100 MG CAP PO ONE (12:53)
[2024-09-07] MEDS ORDERED: CEFTRIAXONE 250 MG/VIAL ONE (12:53)
[2024-09-07] MEDS ORDERED: LIDOCAINE 1% MPF 5 ML VIAL ONE (12:53)
[2024-09-07] MEDS ORDERED: metroNIDAZOLE 500 MG TABLET ONE (12:53)
[2024-09-07 13:23] LABS: Influenza A Ag Negative; Influenza B Ag Negative; SARS-CoV-2 Antigen Rapid Res Negative (Negative)
--- NOTE | 2024-09-07 14:07 | EDPHYS ---
Physician Documentation [facility] Name: Caesar Arredondo Age: 18 yrs Sex: Male : 2005 Arrival Date: 09/07/2024 Time: 11:45 Bed 11 Private MD: ED Physician Tim Aguirre HPI: 09/07 12:29 This 18 yrs old Black Male presents to ER via Ambulatory with complaints of Flu rn Symptoms. 12:29 The patient or guardian reports cough, flu symptoms. Onset: The symptoms/episode rn began/occurred 2 day(s) ago. Patient reports here for 2 problems. First problem is cough and congestion with runny nose. No fever or shortness of breath. Also reports had unprotected sex with a girl and noticed dysuria and yellow spots on his boxers this morning. No pain. No rash or lesions.. Historical: - Allergies: 12:14 No Known Allergies; aa5 - Home Meds: 12:14 None [Active]; aa5 - PMHx: 12:14 ADD/ADHD; aa5 - PSHx: 12:14 None; aa5 - Immunization history:: Adult Immunizations unknown. - Infectious Disease History:: Denies. - Social history:: Smoking status: Patient reports the use of cigarette tobacco products. - Family history:: not pertinent. - Hospitalizations: : No recent hospitalization is reported. ROS: 12:29 Constitutional: Negative for fever, chills, and weight loss, ENT: Positive for cough rn and congestion Cardiovascular: Negative for chest pain, palpitations, and edema, Respiratory: Positive for cough, negative for shortness of breath Abdomen/GI: Negative for abdominal pain, nausea, vomiting, diarrhea, and constipation, : Positive for dysuria and yellow drainage MS/Extremity: Negative for injury and deformity, Skin: Negative for injury, rash, and discoloration, Neuro: Negative for headache, weakness, numbness, tingling, and seizure, Exam: 12:29 Constitutional: This is a well developed, well nourished patient who is awake, alert, rn and in no acute distress. ENT: Mild pharyngeal erythema, no lesions or exudate. No stridor Respiratory: Speaking full sentences, unlabored Vital Signs: 12:12 BP 143 / 79; Pulse 66; Resp 16 S; Temp 98(O); Pulse Ox 98% on R/A; Weight 65.77 kg (R); aa5 Height 5 ft. 5 in. (R); 12:12 Body Mass Index 24.13 (65.77 kg, 165.1 cm) aa5 MDM: 12:00 Medical Screening Exam initiated rn 14:05 Differential Diagnosis: Bronchitis Influenza Upper Respiratory Infection Viral rn Syndrome. Data reviewed: vital signs, nurses notes, and as a result, I will discharge patient. Counseling: I had a detailed discussion with the patient and/or guardian regarding the historical points, exam findings, and any diagnostic results supporting the discharge/admit diagnosis, lab results, the need for outpatient follow up, to return to the emergency department if symptoms worsen or persist or if there are any questions or concerns that arise at home. Special discussion: I discussed with the patient/guardian in detail that at this point there is no indication for admission to the hospital. It is understood, however, that if the symptoms persist or worsen the patient needs to return immediately for re-evaluation. 09/07 12:00 Order name: COVID-19 Ag + Flu A+B Ag; Complete Time: 14:05 rn 09/07 12:00 Order name: Group A Streptococcus Rapid; Complete Time: 14:05 rn 09/07 13:25 Order name: Throat Culture EDMS Administered Medications: 12:59 Drug: Rocephin (cefTRIAXone) IM 250 mg IM once Route: IM; Site: left gluteus; aa5 13:15 Follow up: Response: No adverse reaction aa5 12:59 Drug: metroNIDAZOLE PO 2 grams PO once Route: PO; aa5 13:15 Follow up: Response: No adverse reaction aa5 12:59 Drug: Doxycycline PO 100 mg PO once Route: PO; aa5 13:15 Follow up: Response: No adverse reaction aa5 Disposition Summary: 09/07/24 14:06 Discharge Ordered Notes: Location: Home rn Problem: new rn Symptoms: have improved rn Condition: Stable rn Diagnosis - Acute upper respiratory infection, unspecified rn - Unspecified sexually transmitted disease rn Followup: rn - With: Private Physician - When: As needed - Reason: Recheck today's complaints, Re-evaluation by your physician Discharge Instructions: - Discharge Summary Sheet rn - Upper Respiratory Infection, Adult rn - Viral Respiratory Infection rn - Preventing Sexually Transmitted Infections, Adult rn Forms: - Medication Reconciliation Form rn - 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 EDMS EDMS 12: 12:01 Group A Streptococcus Rapid Sc+I.LAB.BRZ ordered. EDMS EDMS
--- NOTE | 2024-09-07 14:07 | ER ---
Nurse's Notes [facility] Name: Caesar Arredondo Age: 18 yrs Sex: Male : 2005 Arrival Date: 09/07/2024 Time: 11:45 Bed 11 Private MD: Diagnosis: Acute upper respiratory infection, unspecified;Unspecified sexually transmitted disease Presentation: 09/07 12:12 Chief complaint: Patient states: cough x 2 days ago, pt also states "I was with this aa5 girl and I found some yellow stains in my boxers so I want to be checked out". Coronavirus screen: cough unrelated to allergies. Ebola Screen: Patient denies travel to an Ebola-affected area in the 21 days before illness onset. Initial Sepsis Screen: Does the patient meet any 2 criteria? No. Patient's initial sepsis screen is negative. Does the patient have a suspected source of infection? No. Patient's initial sepsis screen is negative. Risk Assessment: Do you want to hurt yourself or someone else? Patient reports no desire to harm self or others. Onset of symptoms was August 2024. 12:12 Acuity: BENITO 4 aa5 12:12 Method Of Arrival: Ambulatory aa5 Historical: - Allergies: 12:14 No Known Allergies; aa5 - Home Meds: 12:14 None [Active]; aa5 - PMHx: 12:14 ADD/ADHD; aa5 - PSHx: 12:14 None; aa5 - Immunization history:: Adult Immunizations unknown. - Infectious Disease History:: Denies. - Social history:: Smoking status: Patient reports the use of cigarette tobacco products. - Family history:: not pertinent. - Hospitalizations: : No recent hospitalization is reported. Screenin:15 [facility] ED Fall Risk Assessment (Adult) History of falling in the last 3 months, aa5 including since admission No falls in past 3 months (0 pts) Confusion or Disorientation No (0 pts) Intoxicated or Sedated No (0 pts) Impaired Gait No (0 pts) Mobility Assist Device Used No (0 pt) Altered Elimination No (0 pt) Score/Fall Risk Level 0 - 2 = Low Risk Oriented to surroundings, Maintained a safe environment, Educated pt \\T\\ family on fall prevention, incl call for assistance when getting out of bed, Assessed \\T\\ reinforced patient's understanding of fall precautions. Abuse screen: Denies threats or abuse. Nutritional screening: No deficits noted. Tuberculosis screening: No symptoms or risk factors identified. Assessment: 12:15 General: Appears comfortable, Behavior is calm, cooperative. Pain: Denies pain. Neuro: aa5 Level of Consciousness is awake, alert, obeys commands, Oriented to person, place, time, situation. Cardiovascular: Patient's skin is warm and dry. Respiratory: Reports cough Airway is patent Respiratory effort is even, unlabored, Respiratory pattern is regular, symmetrical. GI: No signs and/or symptoms were reported involving the gastrointestinal system. : Reports yellowish penile discharge. EENT: Reports sore throat . Derm: Skin is dry, Skin is normal, Skin temperature is warm. Musculoskeletal: Range of motion: intact in all extremities. 13:15 Neuro: Level of Consciousness is awake, alert, obeys commands, Oriented to person, aa5 place, time, situation. Respiratory: Airway is patent Respiratory effort is even, unlabored, Respiratory pattern is regular, symmetrical. Derm: Skin is dry, Skin is normal, Skin temperature is warm. 14:17 Neuro: Level of Consciousness is awake, alert, obeys commands, Oriented to person, aa5 place, time, situation. Respiratory: Airway is patent Respiratory effort is even, unlabored, Respiratory pattern is regular, symmetrical. Derm: Skin is dry, Skin is normal, Skin temperature is warm. Vital Signs: 12:12 BP 143 / 79; Pulse 66; Resp 16 S; Temp 98(O); Pulse Ox 98% on R/A; Weight 65.77 kg (R); aa5 Height 5 ft. 5 in. (R); 12:12 Body Mass Index 24.13 (65.77 kg, 165.1 cm) aa5 ED Course: 11:48 Patient arrived in ED. cj3 12:00 Tim Aguirre MD is Attending Physician. rn 12:12 Arm band placed on. aa5 12:12 Patient has correct armband on for positive identification. Bed in low position. Call aa5 light in reach. Side rails up X 1. 12:13 Triage completed. aa5 12:30 Linh Fajardo, RN is Primary Nurse. jl7 12:59 Joana Polanco, RN is Primary Nurse. aa5 14:17 No provider procedures requiring assistance completed. Patient did not have IV access aa5 during this emergency room visit. Administered Medications: 12:59 Drug: Rocephin (cefTRIAXone) IM 250 mg IM once Route: IM; Site: left gluteus; aa5 13:15 Follow up: Response: No adverse reaction aa5 12:59 Drug: metroNIDAZOLE PO 2 grams PO once Route: PO; aa5 13:15 Follow up: Response: No adverse reaction aa5 12:59 Drug: Doxycycline PO 100 mg PO once Route: PO; aa5 13:15 Follow up: Response: No adverse reaction aa5 Medication: 14:17 VIS not applicable for this client. aa5 Outcome: 14:06 Discharge ordered by . rn 14:17 Discharged to home ambulatory, aa5 14:17 Condition: stable 14:17 Discharge instructions given to patient, Instructed on discharge instructions, follow up and referral plans. medication usage, Demonstrated understanding of instructions, follow-up care, medications, Prescriptions given X 1, 14:18 Patient left the ED. eb Signatures: Tim Aguirre MD MD rn Calderon, Audri RN RN aa5 Linh Fajardo RN RN jl7 Yessenia Conner Celeste 3
[2024-09-07 14:42] VITALS: BP 143/79; TEMP 98; O2SAT 98
== END 2024-09-07 14:18 | disposition home or self-care (01) ==
LOC: ER 11:45
DX: J06.9 Acute upper respiratory infection, unspecified (principal); A64 Unspecified sexually transmitted disease; Z72.0 Tobacco use; Z11.52 Encounter for screening for COVID-19
CPT/HCPCS: 87070; 36415; 96372; 99284; 87428; J2003; J0696